=== PATIENT | male | born 1965 | race Caucasian/White ===

== ENCOUNTER → 2017-07-17 | Outpatient (CLI) | payer BC, OTHER ==
--- NOTE | 2017-07-17 16:38 | RT STRESS TEST REPORT ---
FACILITY: [facility] - [place] PATIENT NAME: ALICE AGUILAR : [id number] MR: [id number] V: [id number] EXAM DATE: ORDERING PHYSICIAN: ESDRAS SLOAN TECHNOLOGIST: Jesu Acquisition Time: 2017-07-17 14:04:47 Total Exercise Time: 00:08:15 Test Indications: Chest Pain / Discomfort Medications: Protocol: BRUCE2 Max HR: 162 BPM 95% of Pred: 170 BPM Max BP: 205/061 mmHG Max Work Load: 10.1 METS Confirmed by MARE TRIANA ([id number]) on 07/17/2017 4:38:01 PM Referred By: Overread By: MARE TRIANA
== END ==
LOC: RESP 05:24
PROVIDERS: ATTEND Family Medicine
DX: R07.2 Precordial pain (principal)
CPT/HCPCS: 93017

== ENCOUNTER → 2018-06-18 | Outpatient (CLI) | payer BC ==
[~2018-06-18] MED LIST: IOPAMIDOL 76% 75 ML INFUS BTL 75 ML ONE; NS(*) 0.9% 50 ML BAG 50 ML ONE
--- NOTE | 2018-06-18 14:35 | RADIOLOGY IMAGING REPORT ---
FACILITY: [facility] - [place] PATIENT NAME: Donald Dobbins : 1965 MR: [id number] V: [id number] EXAM DATE: ORDERING PHYSICIAN: ESDRAS SLOAN TECHNOLOGIST: Location: Patient: Donald Dobbins : 1965 Visit/Account:[id number] Date of Sevice: 06/18/2018 CT CTA CHEST W & W/O CON HISTORY: Precordial chest pain ADDITIONAL HISTORY: None. TECHNIQUE: CTA chest with intravenous contrast. Axial imaging acquired following administration of IV contrast timed for maximum opacification of the pulmonary arterial vasculature. Slab 3-D MIP obey nstructed images were also created for further evaluation and interpretation. Reconstruction of the [facility] data set includes multiplanar 2-D in the sagittal and coronal planes and 3-D reconstructed giorgi nal slab MIP series. 3-D images were created by the technologist.Dose Lowering Technique One of the following dose optimization techniques was utilized in the performance of this exam: Autom ated exposure control; adjustment of the mA and/or kV according to the patient's size; or use of an i terative reconstruction technique. Specific details can be referenced in the facility's radiology C T exam operational policy. CONTRAST: 75 mL [id number] COMPARISON: None. FINDINGS: Lungs/pleura: There is a 3 x 4 mm noncalcified nodule lateral aspect of the right lower lobe best se en on image 182 of series 12. There Is a cluster of small noncalcified nodules in the right upper lo be largest measuring approximately 3 mm in diameter. There is a 3 mm calcified nodule anterior aspect left upper lobe best seen on image 126. There is coarse linear stranding in the inferior lingula and left lower lobe which may represent atel ectasis versus scarring. There is a 3 mm subpleural nodule lateral aspect left lower lobe best seen on image 201. There are mild dependent changes in the lower lung regan Heart/vessels: Immediately adjacent to the inferior aspect of the inferior right pulmonary vein ther e is an ovoid hypodense region measuring 1.4 x [address] Hounsfield units suggest a cystic natu re. This could represent congenital cystic structure, a low dense lymph node or other mass lesion. This does not enhance with contrast Mediastinum/lymph nodes: As above Visualized upper abdomen: Negative. Bones/soft tissues: Negative. Additional findings: None IMPRESSION: No evidence of pulmonary emboli. Immediately adjacent to the inferior aspect of the inferior right pulmonary vein there is an ovoid hy podense region as described above. This could represent a congenital cystic structure, a low dense l ymph node or other mass lesion. Depending upon the clinical presentation at 3-6 month follow-up CT o f the chest with contrast may be helpful for further evaluation There are calcified and noncalcified pulmonary nodules bilaterally. The largest noncalcified nodule measures approximately 4 mm in diameter [employer] FOLLOW-UP GUIDELINES FOR NEWLY DETECTED INCIDENTAL NODULES IN PERSONS 35 YEARS OF AGE OR OLDER. *These recommendations do NOT apply to lung cancer screening, patients with immunosuppression or isaura ents with a known primary malignancy. MULTIPLE SOLID NODULES If nodule size is < 6 mm: * Low risk patient ? No routine follow-up. * High risk patient ? Optional CT at 12 months. If nodule size is 6-8 mm: * Low risk patient ? CT at 3-6 months, then consider CT at 18-24 months if no change. * High risk patient ? CT at 3-6 months, then CT at 18-24 months if no change. If nodule size is > 8 mm: * Low risk patient ? CT at 3-6 months, then consider CT at 18-24 months if no change. * High risk patient ? CT at 3-6 months, then consider CT at 18-24 months if no change. LOW RISK PATIENT: Minimal or absent history of tobacco use and of other known risk factors. HIGH RISK PATIENT: Tobacco use, family history of lung cancer, upper pulmonary lobe location of nodul e, presence of emphysema, pulmo lashawn fibrosis, older age. Mateo H, Jose DP, Blake JM, et al. Guidelines for Management of Incidental Pulmonary Nodules Dete cted on CT Images: From the Fleischner Society 2017. Radiology. [facility] Dictated By: Wendy Saucedo MD at 06/18/2018 2:20 PM Report E-Signed By: Wendy Saucedo MD at 06/18/2018 2:30 PM WSN:[id number]
== END ==
LOC: CT 00:37
PROVIDERS: ATTEND Family Medicine
DX: R91.8 Other nonspecific abnormal finding of lung field (principal)
CPT/HCPCS: 71275; J7050; Q9967